=== PATIENT | male | born 1995 | race Caucasian/White ===

== ENCOUNTER 2020-06-19 21:30 | Emergency (ER) | payer OTHER ==
[~2020-06-19] VITALS: Ht 170.2 cm; Wt 67.0 kg
[2020-06-19] MEDS ORDERED: BACITRACIN 0.9 GM PACKET OINTMENT TP ONE (22:30)
[2020-06-19] MEDS ORDERED: ACETAMINOPHEN 500 MG TABLET PO ONE (22:45)
[2020-06-19 23:12] VITALS: BP 124/69
== END 2020-06-19 23:18 | disposition home or self-care (01) ==
LOC: EMS 21:33
DX: S01.01XA Laceration without foreign body of scalp, initial encounter (principal); W20.8XXA Other cause of strike by thrown, projected or falling object, initial encounter; Y93.89 Activity, other specified; Y92.89 Other specified places as the place of occurrence of the external cause; Y99.8 Other external cause status
CPT/HCPCS: 12001; Z7502; Z7610